=== PATIENT | male | born 1945 | race Two or more races ===

== ENCOUNTER 2021-11-16 12:58 | Emergency (ER) | payer SELFPAY ==
[~2021-11-16] VITALS: Ht 180.3 cm; Wt 79.8 kg
--- NOTE | 2021-11-16 13:06 | NUR ---
BIB [facility] 79 FROM HOME, C/O L SIDED ABDOMINAL PAIN/NAUSEA/VOMITING AND BLOOD NOTED ON HIS STOOL. PT HAS HX OF HEMORRHOIDS. PT IS A;ERT AND ORIENTATED X4. VITALS ARE WITHIN NORMAL LIMITS. PT ATTCHED TO MONITOR. AWAITING MD ORDERS.
[2021-11-16] MEDS ORDERED: ONDANSETRON HCL/PF 4 MG/2 ML VIAL IVP ONE (13:30)
[2021-11-16] MEDS ORDERED: IV NS 0.9% 1,000 ML BAG IV ONE (13:30)
--- NOTE | 2021-11-16 13:31 | NUR ---
IV ESTABLISHED L AC 20G. BLOOD COLLECTED AND SENT. CONVERTED TO SALINE LOCK.
[2021-11-16] MEDS ORDERED: ONDANSETRON HCL/PF 4 MG/2 ML VIAL ONE (13:41)
[2021-11-16 13:52] LABS: BASOPHILS # (AUTO) 0.1 K/uL (0.0-0.2); BASOPHILS % (AUTO) 0.8 % (0.0-2.0); HEMATOCRIT 48 % (39-51); LYMPHOCYTES # (AUTO) 1.3 K/uL (0.8-4.8); LYMPHOCYTES % (AUTO) 15.9 % (20.0-44.0); MEAN CORPUSCULAR HGB CONC 34 g/dl (31.0-36.0); MEAN CORPUSCULAR VOLUME 97 fL (80-96); MONOCYTES # (AUTO) 0.4 K/uL (0.1-1.30); MONOCYTES % (AUTO) 4.9 % (2.0-12.0); NEUTROPHILS # (AUTO) 6.1 K/uL (1.8-8.9); NEUTROPHILS % (AUTO) 76.4 % (43.0-81.0); PLATELET COUNT (AUTO) 280 K/uL (150-450)
--- NOTE | 2021-11-16 14:03 | NUR ---
URINE COLLECTED AND SENT
[2021-11-16 14:07] LABS: ALBUMIN 3.6 g/dL (3.4-5.0); BILIRUBIN,DIRECT 0.1 mg/dL (0.0-0.2); CALCIUM, SERUM 9.1 mg/dL (8.5-10.1); POTASSIUM 3.5 mmol/L (3.5-5.1); TOTAL PROTEIN, SERUM 7.5 g/dL (6.4-8.2)
[2021-11-16 14:47] LABS: BILIRUBIN,URINE NEGATIVE (NEGATIVE); COLOR,URINE YELLOW (YELLOW); LEUKOCYTE ESTERASE ,URINE TRACE (NEGATIVE); NITRITE, URINE NEGATIVE (NEGATIVE); PH,URINE 7.5 (5.0-8.0); PROTEIN,URINE TRACE mg/dl (NEGATIVE); UGLUCOSE NEGATIVE (NEGATIVE); UROBILINOGEN,URINE 0.2 EU/dL (0.2)
[2021-11-16 14:59] LABS: BACTERIA,URINE RARE /HPF (None Seen); RBC,URINE TOO NUMEROUS TO COUN /HPF (0-2); SQUAMOUS EPITHELIAL CELL,UR 0-2 /HPF (None Seen)
[2021-11-16] MEDS ORDERED: DOCU-141 PO (15:26)
[2021-11-16] MEDS ORDERED: BISA-79 PO (15:26)
[2021-11-16 15:35] VITALS: BP 124/75
--- NOTE | 2021-11-16 15:46 | NUR ---
IV removed. Catheter intact and site benign. Pressure and 4x4 applied to site. No bleeding noted.Patient discharged to home in stable condition. Written and verbal after care instructions given. Patient verbalizes understanding of instruction.
--- NOTE | 2021-11-16 15:46 | NUR ---
IV removed. Catheter intact and site benign. Pressure and 4x4 applied to site. No bleeding noted.
== END 2021-11-16 15:49 | disposition home or self-care (01) ==
LOC: ER 13:29
DX: N20.0 Calculus of kidney (principal); N40.0 Benign prostatic hyperplasia without lower urinary tract symptoms; K62.5 Hemorrhage of anus and rectum; K59.00 Constipation, unspecified; I10 Essential (primary) hypertension; I25.2 Old myocardial infarction; Z60.2 Problems related to living alone; Z79.899 Other long term (current) drug therapy
CPT/HCPCS: 36415; 74176; 80048; 80076; 81001; 83690; 85025; 96361; 96374; 99284; J2405; J7030